=== PATIENT | female | born 1970 | race Caucasian/White ===

== ENCOUNTER 2020-06-10 16:04 | Emergency (ER) | payer MEDICARE, MEDICAID ==
[~2020-06-10] VITALS: Ht 167.6 cm; Wt 159.1 kg
[~2020-06-10 16:04] MED LIST: AMIT-189 PO; CETI10TA18 PO; CLON-527 PO; CYCL-1 PO; DIPH-423 PO; EPIN0.3P8 IM; HYDR-4383 PO; IBUPROFEN PO; LISI-639 PO; PRED50TA PO; RANI-366 PO; ZOLP5TAB8 PO
[2020-06-10 16:56] VITALS: BP 198/95
[2020-06-10] MEDS ORDERED: HYDROcodone/acetaminophen 5mg/325mg tablet PO ONE (19:25)
== END 2020-06-10 20:14 | disposition home or self-care (01) ==
LOC: ER 16:04
DX: S83.8X1A Sprain of other specified parts of right knee, initial encounter (principal); S73.191A Other sprain of right hip, initial encounter; S40.021A Contusion of right upper arm, initial encounter; I10 Essential (primary) hypertension; E11.9 Type 2 diabetes mellitus without complications; G89.29 Other chronic pain; F41.9 Anxiety disorder, unspecified; Z90.49 Acquired absence of other specified parts of digestive tract; Z90.710 Acquired absence of both cervix and uterus; Z98.890 Other specified postprocedural states; Z72.89 Other problems related to lifestyle; Z88.8 Allergy status to other drugs, medicaments and biological substances; Z79.899 Other long term (current) drug therapy; W01.0XXA Fall on same level from slipping, tripping and stumbling without subsequent striking against object, initial encounter; Y93.89 Activity, other specified; Y92.89 Other specified places as the place of occurrence of the external cause; Y99.8 Other external cause status
CPT/HCPCS: 72131; 73502; 73552; 73564; 73590; 73700; 99285

== ENCOUNTER 2023-04-21 09:53 | Emergency (ER) | payer MEDICARE, MEDICAID ==
[~2023-04-21] VITALS: Ht 172.7 cm; Wt 157.3 kg
[~2023-04-21 09:53] MED LIST changes: -AMIT-189 PO; +AMIT50TA15 PO; -CETI10TA18 PO; +CETI10TA19 PO
[2023-04-21 10:22] VITALS: TEMP 98.5
--- NOTE | 2023-04-21 10:30 | NUR ---
PT PRESENTS WITH DIFFUSE RASH TO ENTIRE BODY WITH ERYTHEMA. STATES SHE MAY HAVE HAD PINEAPPLE LASTNIGHT AT A [facility]. NO SOB OR DIFFICULTY BREATHING AT THIS TIME.
[2023-04-21] MEDS ORDERED: dexamethasone sod phosphate 10mg/ml inj IV STA (10:39)
[2023-04-21] MEDS ORDERED: hyDROXYzine 50 mg/ml injection ***IM only IM ONE (10:40)
[2023-04-21] MEDS ORDERED: famotidine/PF 10 mg/ml inj IV ONE (10:40)
[2023-04-21] MEDS ORDERED: diphenhydrAMINE 50 mg/ml inj IV ONE (10:40)
[2023-04-21] MEDS ORDERED: FAMO-128 PO (12:21)
[2023-04-21] MEDS ORDERED: METH4TAB81 PO (12:21)
[2023-04-21 12:53] VITALS: BP 179/98; PULSE 72; RESP 18; O2SAT 98
== END 2023-04-21 12:56 | disposition home or self-care (01) ==
LOC: ER 09:53
DX: L50.0 Allergic urticaria (principal)
CPT/HCPCS: 96374; 96375; 99284; J1100; J1200; J3490

== ENCOUNTER 2024-10-05 20:16 | Emergency (ER) | payer MEDICARE, MEDICAID ==
[~2024-10-05] VITALS: Ht 167.6 cm; Wt 157.0 kg
[~2024-10-05 20:16] MED LIST changes: +FAMO-128 PO; +METH4TAB81 PO
[2024-10-05 20:24] VITALS: TEMP 101.7
--- NOTE | 2024-10-05 20:35 | ELECTROCARDIOGRAPH REPORT ---
[facility] Test Date: 2024-10-05 Test Time: 20:31:41 Pat Name: TISH DAUGHERTY Department: EMERGENCY ROOM Room: Gender: F Feather Trimmer: ALEXUS : 1970 Requested By: TOBIAS STEVEN Order Number: [id number] Reading MD: Measurements Intervals [place] Rate: 117 P: 24 NH: 168 QRS: -10 QRSD: 101 T: 18 QT: 335 QTc: 468 Interpretive Statements Sinus tachycardia Borderline repolarization abnormality Baseline wander in lead(s) II,III,aVF Please click the below link to view image of tracing.
[2024-10-05 20:50] LABS: BASOPHILS % (AUTO) 0.2 % (0-1); EOSINOPHILS # (AUTO) 0.1 X10'3 (0-0.9); EOSINOPHILS % (AUTO) 0.5 % (0-6); HEMATOCRIT 39.4 % (35.0-45.0); HEMOGLOBIN 13.4 g/dl (12.0-16.0); LYMPHOCYTES # (AUTO) 0.3 X10'3 (1.1-4.8); LYMPHOCYTES % (AUTO) 2.6 % (21-51); MEAN CORPUSCULAR HEMOGLOBIN 29.2 PG (27.0-31.0); MEAN CORPUSCULAR HGB CONC 34.1 g/dL (33.0-36.5); MEAN CORPUSCULAR VOLUME 85.7 FL (78-98); MEAN PLATELET VOLUME 7.6 FL (7.4-10.4); MONOCYTES # (AUTO) 0.3 X10'3 (0-0.9); MONOCYTES % (AUTO) 2.7 % (2-12); PLATELET COUNT 176 X10'3 (140-440); RED CELL DISTRIBUTION WIDTH 13.1 % (11.5-14.5); WHITE BLOOD COUNT 11.7 X10'3 (4.5-11.0)
[2024-10-05 21:02] LABS: ALANINE AMINOTRANSFERASE 49 U/L (12-78); ALBUMIN 3.7 G/DL (3.4-5.0); ALBUMIN/GLOBULIN RATIO 1.2 (1.1-1.5); ALKALINE PHOSPHATASE 80 IU/L (46-116); ANION GAP 12 (8-16); ASPARTATE AMINO TRANSFERASE 31 U/L (10-37); BILIRUBIN,TOTAL 0.6 MG/DL (0.1-1.0); BLOOD UREA NITROGEN 14 MG/DL (7-18); BUN/CREATININE RATIO 19.4 (10.0-20.0); CALCIUM 8.7 MG/DL (8.5-10.1); CHLORIDE 104 MMOL/L (99-107); CREATININE 0.72 MG/DL (0.40-0.90); GLUCOSE 159 MG/DL (70-104); POTASSIUM 3.7 MMOL/L (3.5-5.1); SODIUM 141 MMOL/L (135-145); TOTAL CARBON DIOXIDE 25.4 MMOL/L (24-32); TOTAL PROTEIN 6.8 G/DL (6.4-8.2); eCRCL 86 ML/MIN; eGFR 85 ML/MIN
[2024-10-05 21:09] LABS: PRO BRAIN NATRIURETIC PEPTIDE 77 PG/ML (0-125)
--- NOTE | 2024-10-05 22:49 | Physician Documentation ---
History of Present Illness ~ General Chief Complaint: See Chief Complaint Stated Complaint: VOMITING Time Seen by MD: 22:40 Primary Medical Doctor: Dr. Yun ([facility]) Source: patient, family Mode of Arrival: EMS History of Present Illness Initial Comments 53-year-old female history of obesity on GLP 1 agonist presenting for fever nausea and vomiting. She reports shaking chills several hours ago followed by episode of vomiting. No abdominal pain. No chest pain. Her symptoms have since improved following IV Zofran per EMS Medication Reconciliation Allergies: Coded Allergies: pineapple (Verified Allergy, Unknown, 04/21/23) lorazepam (Verified Adverse Reaction, Intermediate, 04/21/23) Uncoded Allergies: ADHESIVE TAPE (Adverse Reaction, Mild, PROLONG REDNESS, 10/05/14) EKG ELECTRODES ADHESIVES, OTHER TAPES Scheduled Amitriptyline Hcl* (Elavil*), 2 TAB PO HS, (Reported) Cetirizine HCl (Cetirizine HCl), 1 TAB PO BID Clonazepam* (Klonopin*), 1 MG PO BID, (Reported) Diphenhydramine Hcl (Benadryl), 25 MG PO TID Epinephrine (Epipen 2-Arsen), 0.3 MG IM UD Famotidine (Pepcid), 1 TAB PO Q12H Lisinopril/Hydrochlorothiazide (Zestoretic 10-12.5 mg Tablet), 1 TABLET PO DAILY, (Reported) Methylprednisolone (Medrol Dosepak), 0 PO UD Prednisone (Prednisone), 1 TAB PO DAILY Ranitidine Hcl (Zantac), 150 MG PO DAILY Zolpidem Tartrate* (Ambien*), 1 TAB PO HS, (Reported) [Ibuprofen], 800 MG PO TID, (Reported) Scheduled PRN Cyclobenzaprine* (Cyclobenzaprine*), 1 TABLET PO Q8H PRN for muscle spasms Hydrocodone/Acetaminophen ([place] 5-325 Tablet), 1 TAB PO TID PRN PRN for pain ONDANSETRON ODT 4mg tablet (Ondansetron Odt), 1 TAB PO Q6H PRN PRN for nausea/vomiting Past Medical History Past Medical History: Hypertension, Diabetes, Chronic Back Pain, Anxiety Past Surgical History: cholecystectomy, hysterectomy, other Alcohol Use: Sober Drug Use: none Lives with: Spouse Lives In: Home Occupation: employed Review of Systems Constitutional: Reports: fever ENT: Denies: ear pain Respiratory: Denies: cough, shortness of breath Cardiovascular: Denies: chest pain Gastrointestinal: Reports: nausea, vomiting; Denies: abdomen distended, abdominal pain, diarrhea, constipated, melena, hematemesis, hematochezia, rectal bleeding, rectal pain, poor appetite Physical Exam Physical Exam Vital Signs: Temperature: 101.7, Source: Oral, Heart Rate: 114, Respiratory Rate: 14, BP: 145/82, Pulse Oximetry: 96, Weight: 157.000 Oxygen Flow Rate: 0 Physical Exam Morbidly obese no distress Pulmonary clear to auscultation bilaterally Cardiac no murmur Abdomen soft nontender Neuro awake alert oriented Progress Progress Note Labs independently interpreted labs leukocytosis 11.7 Results/Orders Results/Orders Orders - TOBIAS STEVEN MD Chest,Single View (10/05/24 20:34) Monitor (10/05/24 20:34) Saline Lock (10/05/24 20:34) Oxygen (10/05/24 20:34) Hs Troponin I W Calculations (10/05/24 23:34) Cult Urine + [place] (10/06/24 01:09) Completed Orders - TOBIAS STEVEN MD Chest,Single View (10/05/24 20:34) Cbc/Diff (10/05/24 20:34) PBNP (10/05/24 20:34) Electrocardiogram (10/05/24 20:34) CMP (10/05/24 20:34) Hs Troponin I W Calculations (10/05/24 20:34) Hs Troponin I W Calculations (10/05/24 22:34) Ketorolac Trometh 15mg/Ml Vial (Toradol (10/05/24 23:10) Ringers Solution, Lacted (Lactated Ringe (10/05/24 23:10) Ondansetron Disint. Tablet (Zofran Odt T (10/06/24 00:15) Ua W/Microscopic, Cult If Ind (10/06/24 00:26) Vital Signs 10/05/24 10/05/24 10/05/24 10/05/24 20:24 20:48 20:48 23:12 Temp 101.7 Pulse 116 114 Resp 20 18 14 14 B/P (MAP) 150/86 145/82 (103) Pulse Ox 95 96 O2 Flow Rate 3.0 0 10/06/24 00:32 Pulse 94 Resp 16 B/P (MAP) 134/72 Pulse Ox 98 Laboratory Tests Test 10/05/24 20:41 10/05/24 22:40 10/06/24 00:26 White Blood Count 11.7 H Red Blood Count 4.60 Hemoglobin 13.4 Hematocrit 39.4 Mean Corpuscular Volume 85.7 Mean Corpuscular Hemoglobin 29.2 Mean Corpuscular Hemoglobin Concent 34.1 Red Cell Distribution Width 13.1 Platelet Count 176 Mean Platelet Volume 7.6 Neutrophils (%) (Auto) 94.0 H Lymphocytes (%) (Auto) 2.6 L Monocytes (%) (Auto) 2.7 Eosinophils (%) (Auto) 0.5 Basophils (%) (Auto) 0.2 Neutrophils # (Auto) 11.0 H Lymphocytes # (Auto) 0.3 L Monocytes # (Auto) 0.3 Eosinophils # (Auto) 0.1 Basophils # (Auto) 0.0 CBC Comment Sodium Level 141 Potassium Level 3.7 Chloride Level 104 Carbon Dioxide Level 25.4 Anion Gap 12 Blood Urea Nitrogen 14 Creatinine 0.72 Estimated GFR/1.73 m2 85 BUN/Creatinine Ratio 19.4 Glucose Level 159 H Calcium Level 8.7 Total Bilirubin 0.6 Aspartate Amino Transf (AST/SGOT) 31 Alanine Aminotransferase (ALT/SGPT) 49 Alkaline Phosphatase 80 Troponin I High Sensitivity 11 13 Pro-B-Type Natriuretic Peptide 77 Total Protein 6.8 Albumin 3.7 Globulin 3.1 Albumin/Globulin Ratio 1.2 Chemistry Comments Troponin I High Sens Percent Delta 18 Troponin I Hi Sens Absolute Change 2 Urine Specimen Description Cln catch midstream Urine Color Yellow Urine Clarity Clear Urine pH 6.0 Urine Specific [place] 1.015 Urine Protein Negative Urine Glucose (UA) Negative Urine Ketones Negative Urine Occult Blood Negative Urine Nitrite Positive H Urine Bilirubin Negative Urine Urobilinogen 0.2 Urine Leukocyte Esterase Small H Urine RBC None seen Urine WBC 5-10 H Urine Squamous Epithelial Cells Few Urine Bacteria 4+ Urine Mucus Few Urine Culture Indicated Indicated Volume Urine Centrifuged 10 ml Urine Comment Microbiology Date/Time Source Procedure Growth Status 10/06/24 01:09 Urine Clean Catch Midstream Urine Culture - Preliminary Culture received. Resulted EKG/XRAY/CT/US/VASC/MRI EKG : Additional Comment EKG independently interpreted by myself time 8:31 p.m. indication symptomatic patient sinus tachycardia rate 117 left axis deviation normal intervals no ST or T-wave abnormalities Medical Decision Making Additional info obtained from: old records Findings Reviewed discharge summary 2014 acute epiglottitis, dm, HTN, chronic pain, anxiety Differential Diagnosis Considered gastroenteritis, appendicitis, other causes of nausea vomiting abdominal pain Departure Disposition: HOME / SELF CARE / HOMELESS Impression: Primary Impression: Gastroenteritis Additional Instructions: Please return if you have i any abdominal pain or worsening of your symptoms Referrals: NO PRIMARY CARE PROVIDER (PCP) Prescriptions ONDANSETRON ODT 4mg tablet (ONDANSETRON ODT) 4 Mg Tab.rapdis 1 TAB PO Q6H PRN PRN for nausea/vomiting for 4 Days, #16 TAB 0 Refills Prov: TOBIAS STEVEN MD 10/06/24 Signature Scribe Signature: na Attestation: TOBIAS Levy MD October 05, 2024 22:49
[2024-10-05] MEDS: ketorolac trometh 15mg/ml vial 15 MG/ML ML IV ONE (23:12)
[2024-10-05] MEDS: ringers solution, lacted 1,000 ML IV ONE (23:14)
[2024-10-06] MEDS ORDERED: ONDA-243 PO (00:12)
[2024-10-06] MEDS: ondansetron 4mg rapidly disintigrating tab PO ONE (00:25)
[2024-10-06 00:32] VITALS: BP 134/72; PULSE 94; RESP 16; O2SAT 98
[2024-10-06 01:04] LABS: BILIRUBIN,URINE NEGATIVE (Neg); CLARITY,URINE CLEAR (Clear); COLOR,URINE YELLOW (Yellow); GLUCOSE, URINE NEGATIVE (Neg); KETONES,URINE NEGATIVE (Neg); LEUKOCYTE ESTERASE ,URINE SMALL (Neg); NITRITES, URINE POSITIVE (Neg); OCCULT BLOOD,URINE NEGATIVE (Neg); PROTEIN,URINE NEGATIVE (Neg); UROBILINOGEN,URINE 0.2 E.U/dL (0.2-1.0)
[2024-10-06 01:08] LABS: UA COLLECTION TYPE CLN CATCH MIDSTREAM
[2024-10-06 01:10] LABS: BACTERIA,URINE 4+ /HPF (Neg); RBC,URINE NONE SEEN /HPF (0-2); SQUAMOUS EPITHELIAL CELL,UR FEW /LPF (FEW)
[2024-10-06 01:11] LABS: MUCUS STRANDS FEW /LPF (Neg)
== END 2024-10-06 00:35 | disposition home or self-care (01) ==
LOC: ER 20:17
DX: K52.9 Noninfective gastroenteritis and colitis, unspecified (principal); E11.9 Type 2 diabetes mellitus without complications; I10 Essential (primary) hypertension; F41.9 Anxiety disorder, unspecified; F10.90 Alcohol use, unspecified, uncomplicated; Z88.8 Allergy status to other drugs, medicaments and biological substances; Z90.49 Acquired absence of other specified parts of digestive tract; Z90.710 Acquired absence of both cervix and uterus; Y90.9 Presence of alcohol in blood, level not specified
CPT/HCPCS: 36415; 71045; 80053; 81001; 83880; 84484; 85025; 87077; 87088; 87186; 93005; 96361; 96374; 99285; J1885; J7120

== ENCOUNTER 2024-12-08 09:46 | Emergency (ER) | payer MEDICARE, MEDICAID ==
[~2024-12-08] VITALS: Ht 167.6 cm; Wt 148.4 kg
[~2024-12-08 09:46] MED LIST changes: +ONDA-243 PO
[2024-12-08 09:51] VITALS: BP 172/92; PULSE 88; RESP 18; TEMP 97.7; O2SAT 99
--- NOTE | 2024-12-08 11:27 | Physician Documentation ---
History of Present Illness ~ Chief Complaint: Eye Pain Stated Complaint: EYE PAIN Time Seen by MD: 10:21 OK to notify your PCP?: Yes Primary Medical Doctor: Dr. Yun ([facility]) Source: patient Mode of Arrival: POV Exam Limitations: no limitations HPI 54-year-old diabetic female with chief complaint black squiggly lines" that she sees out of the periphery of her left eye. No eye pain. No photophobia. No o ther symptoms. No h/o eye surgeries. Medication Reconciliation Allergies: Coded Allergies: pineapple (Verified Allergy, Unknown, 04/21/23) lorazepam (Verified Adverse Reaction, Intermediate, 04/21/23) Uncoded Allergies: ADHESIVE TAPE (Adverse Reaction, Mild, PROLONG REDNESS, 10/05/14) EKG ELECTRODES ADHESIVES, OTHER TAPES Scheduled Amitriptyline Hcl* (Elavil*), 2 TAB PO HS, (Reported) Cetirizine HCl (Cetirizine HCl), 1 TAB PO BID Clonazepam* (Klonopin*), 1 MG PO BID, (Reported) Diphenhydramine Hcl (Benadryl), 25 MG PO TID Epinephrine (Epipen 2-Arsen), 0.3 MG IM UD Famotidine (Pepcid), 1 TAB PO Q12H Lisinopril/Hydrochlorothiazide (Zestoretic 10-12.5 mg Tablet), 1 TABLET PO DAILY, (Reported) Methylprednisolone (Medrol Dosepak), 0 PO UD Prednisone (Prednisone), 1 TAB PO DAILY Ranitidine Hcl (Zantac), 150 MG PO DAILY Zolpidem Tartrate* (Ambien*), 1 TAB PO HS, (Reported) [Ibuprofen], 800 MG PO TID, (Reported) Scheduled PRN Cyclobenzaprine* (Cyclobenzaprine*), 1 TABLET PO Q8H PRN for muscle spasms Hydrocodone/Acetaminophen ([place] 5-325 Tablet), 1 TAB PO TID PRN PRN for pain ONDANSETRON ODT 4mg tablet (Ondansetron Odt), 1 TAB PO Q6H PRN PRN for nausea/vomiting Past Medical History Past Medical History: No Pertinent History, Hypertension, Diabetes, Chronic Back Pain, Anxiety Past Surgical History: cholecystectomy, hysterectomy, other Alcohol Use: Sober Drug Use: none Lives with: Spouse Lives In: Home Occupation: employed Review of Systems All Other Systems at this time: Reviewed and Negative Physical Exam Vital Signs: Temperature: 97.7, Source: Temporal, Heart Rate: 88, Respiratory Rate: 18, BP: 172/92, Pulse Oximetry: 99, Weight: 148.450 Oxygen Flow Rate: 0 Physical Exam General Appearance: Alert, WD/WN. NAD. HEENT: NCAT, PERRL, EOMI. No photophobia, bulbar conjunctiva clear no increased injection, no increased tearing, funduscopic exam normal no gross hemorrhages or exudates. Neck: Supple, trachea midline. Cardiovascular: RRR. No m/r/g. Lungs: CTAB. Breathing unlabored Extremities: Normal inspection. No edema. Skin: Warm/dry, normal color Neurological: Alert and oriented x4, normal gait. Psychiatric: Affect congruent with mood. Visual Acuity : Eye Location: Bilateral Vision Acuity Degree: 20/50 Correction: Corrected Progress Results/Orders Results/Orders Vital Signs 12/08/24 09:51 Temp 97.7 Pulse 88 Resp 18 B/P (MAP) 172/92 Pulse Ox 99 O2 Flow Rate 0 Medical Decision Making Eye Diff. Dx: Considerations: Include: [place], Conjuctivits-allergic, Conjuctivitis-bacterial, Conjuctivits-chlamydial, Conjuctivitis-viral, Corneal abrasion, Corneal laceration, Corneal ulceration, Foreign body-conjuctiva, Foreign body-corneal, Foreign body-intraocular, Foreign body-lid, Glaucoma, Globe rupture, Hordeolum, Iritis, Orbital cellulitis, Periobital cellulitis, Retinal artery occulsion, Retinal vein occlusion, Rust ring, Subconjunctival hem, Ultraviolet keratitis, Uveitis, Vitreous hemorrhage Departure Time of Disposition: 11:23 Disposition: HOME / SELF CARE / HOMELESS Impression: Primary Impression: Floaters in visual field Qualified Codes: H43.392 - Other vitreous opacities, left eye Additional Impression: Diabetes Qualified Codes: E11.69 - Type 2 diabetes mellitus with other specified complication Condition: Stable Discharge Instructions: Eye Floaters Additional Instructions: I WILL SEND REFERRAL TO DR. LINDQUIST BUT YOU MAY NEED TO HAVE YOUR PCP SEND REFERRAL WELL WE DO NOT HAVE AN ONCALL OPTHALMOLOGIST IF EYE PAIN OR YOU EXPERIENCE WORSENING OF VISION I RECOMMEND YOU GO TO [facility] WHERE THEY HAVE ONCALL OPTHALMOLOGY SERVICES Referrals: NO PRIMARY CARE PROVIDER (PCP) Ambrose Lindquist MD Education Educated: Patient Educated regarding: diagnosis, treatment, need for follow up Signature Scribe Signature: X Attestation: TARAS DANIELS Dec 08, 2024 11:27
== END 2024-12-08 11:46 | disposition home or self-care (01) ==
LOC: ER 09:47
DX: H43.392 Other vitreous opacities, left eye (principal); F41.9 Anxiety disorder, unspecified; E11.9 Type 2 diabetes mellitus without complications; F10.90 Alcohol use, unspecified, uncomplicated; Z88.8 Allergy status to other drugs, medicaments and biological substances; Z90.49 Acquired absence of other specified parts of digestive tract; Z90.710 Acquired absence of both cervix and uterus; Y90.9 Presence of alcohol in blood, level not specified
CPT/HCPCS: 99282